=== PATIENT | female | born 1950 | race Caucasian/White ===

== ENCOUNTER 2025-05-25 08:09 | Day surgery (SDC) | payer MEDICARE ==
[~2025-05-25] VITALS: Ht 160 cm; Wt 68.0 kg
[~2025-05-25 08:09] MED LIST: ACETAMINOPHEN 1000MG/100ML IV BAG As Ordered ONE; LIDOCAINE 2% 100 MG/5 ML SDV (FOR ANES.) As Ordered ONE; NYST100085 TOP; ONDANSETRON 4MG/2ML VIAL As Ordered ONE; TRIA1PST TOP; dexAMETHasone 4 MG/ML 1 ML VIAL As Ordered ONE
[2025-05-25] MEDS ORDERED: LR 1,000 ML IV SCH ×2 (08:30→13:05)
[2025-05-25] MEDS ORDERED: ROCURONIUM BROMIDE 50MG/5ML VIAL As Ordered ONE (10:06)
[2025-05-25] MEDS ORDERED: SUGAMMADEX SODIUM 500 MG/5 ML VIAL As Ordered ONE (10:06)
[2025-05-25] MEDS: ceFAZolin SOD 2 GM IV ONCE IV ONE (11:20)
[2025-05-25] MEDS: LIDOCAINE W/EPINEPHrine 1% 20 ML VIAL As Ordered ONE (12:20)
[2025-05-25] MEDS: ESTROGENS VAGINAL CREAM 30 GM As Ordered ONE (12:30)
[2025-05-25] MEDS: METHYLENE BLUE 0.5% (5 MG/ML) 10 ML AMP As Ordered ONE (12:30)
[2025-05-25] MEDS ORDERED: CEPH500C PO (12:45)
[2025-05-25] MEDS ORDERED: HYDR-3713 PO (12:45)
[2025-05-25] MEDS ORDERED: HYDROmorphone HCL 2 MG/ML 1 ML VIAL As Ordered ONE (12:50)
[2025-05-25] MEDS: ONDANSETRON 4MG/2ML VIAL IV PRN (13:21)
[2025-05-25] MEDS: HYDROMORPHONE HCL 0.5 MG/0.5 ML SYRINGE IV PRN (13:21)
[2025-05-25 15:00] VITALS: BP 126/59; TEMP 98.9; O2SAT 98
== END 2025-05-25 15:30 | disposition home or self-care (01) ==
LOC: M SDC 08:09
PROVIDERS: ATTEND Urology
DX: N81.10 Cystocele, unspecified (principal); R32 Unspecified urinary incontinence; K21.9 Gastro-esophageal reflux disease without esophagitis; Z90.710 Acquired absence of both cervix and uterus; Z91.040 Latex allergy status; Z87.891 Personal history of nicotine dependence
CPT/HCPCS: 57240; 88302; J0131; J0688; J1100; J1171; J2405; J2550; J3010